=== PATIENT | female | born 1990 | race Caucasian/White ===

== ENCOUNTER 2023-09-17 13:44 | Outpatient (CLI) | payer BC, SELFPAY ==
--- NOTE | 2023-09-17 14:00 | US_ITS ---
Patient: MEDARDO AMOR Facility:?[facility] Patient ID:?[id number] Site Patient ID:?[id number]. Site :?[id number] Study:?US-OB Pelvis anatomy-09/17/2023 2:56:06 PM Ordering Physician:?Aurora Sosa Final Report: HISTORY: anatomic survey. COMPARISON: None available of this gestation. TECHNIQUE: Ultrasound examination of the is performed with transabdominal technique. FINDINGS: A single intrauterine gestation is seen in breech presentation with regular cardiac activity at 144 beats per minute. The placenta is posterior and is free of the cervical os. The placental grade is 0 and the amniotic fluid volume is normal. Single deepest vertical pocket: Normal at 3.9 cm. Non dilated cervix has normal length at 4.3 cm. BPD: 4.4 cm 19 weeks 3 days HC: 17.4 cm 19 weeks 6 days AC: 16.1 cm 21 weeks 1 day FL: 3.4 cm 20 weeks 5 days The estimated age by ultrasound is 20 weeks 4 days, with an estimated date of delivery of 01/31/2024. This correlates well with the clinical age of 20 weeks 2 days. The ultrasound ratios are normal. The estimated weight of 380 grams is at the 73rd percentile based on the clinical dates. The anatomic survey demonstrates normal appearing intracranial structures with a normal septum pellucidum and normal cerebellum. The lateral ventricle is normal in diameter at 7 mm. The upper lip, diaphragm, stomach, cord insertion site, 3-vessel cord, kidneys, bladder and spine are normal in appearance. The lower extremities, the feet, and the cardiac structures are not well seen because of position. IMPRESSION: 1. Single intrauterine gestation in breech presentation with regular cardiac activity. 2. Estimated gestational age is 20 weeks 4 days. 3. The estimated weight of 380 grams is at the 73rd percentile based on the clinical dates. 4. The lower extremities, the feet, and the cardiac structures are not well seen because of position. Dictated by Kalia Pennington MD @ 09/18/2023 10:04:28 AM Signed by:?Kalia Pennington MD @09/18/2023 10:04:28 AM (Electronic Signature)
== END 2023-09-17 13:45 | disposition home or self-care (01) ==
LOC: US 13:45
PROVIDERS: Visit Provider Registered Nurse
DX: Z34.92 Encounter for supervision of normal pregnancy, unspecified, second trimester (principal); O35.HXX0 Maternal care for other (suspected) fetal abnormality and damage, fetal lower extremities anomalies, not applicable or unspecified; O35.BXX0 Maternal care for other (suspected) fetal abnormality and damage, fetal cardiac anomalies, not applicable or unspecified; Z3A.20 20 weeks gestation of pregnancy
CPT/HCPCS: 76805

== ENCOUNTER 2023-10-15 12:53 | Outpatient (CLI) | payer BC, SELFPAY ==
--- NOTE | 2023-10-15 13:00 | CRLHL7_ITS ---
For Patients: As a result of the Century Cures Act, medical imaging exams and procedure reports are released immediately into your electronic medical record. You may view this report before your referring provider. If you have questions, please contact your health care provider. INDICATION: : Missing views of lower extremities/feet and heart lung radford survey TECHNIQUE: Limited transabdominal two-dimensional jalloh-scale ultrasound examination. COMPARISON: 09/17/2023 FINDINGS: There is a living fetus in breech lie with gestational age of 24 weeks 2 days by LMP and EDC of 02/02/2024. The heart rate is measured at 139 beats per minute and the rhythm appears regular. The amniotic fluid volume is within normal limits with single deepest pocket of 3.8 cm. The placenta is posterior and superior to the cervical os. There is no evidence of previa. Lower extremities and feet appear to be within normal limits. Four-chamber heart view within normal limits also. The cervical length is measured at 4.8 cm. IMPRESSION: 1. Living fetus in breech lie with gestational age of 24 weeks 2 days by LMP and EDC of 02/02/2024. 2. Lower extremities, feet and four-chamber heart view within normal limits. Dictated by Shan Castaneda MD @ 10/17/2023 7:44:45 AM (Electronically Signed)
== END 2023-10-15 12:54 | disposition home or self-care (01) ==
LOC: US 12:53
PROVIDERS: Visit Provider Advanced Practice Midwife
DX: O36.8320 Maternal care for abnormalities of the fetal heart rate or rhythm, second trimester, not applicable or unspecified (principal); O35.HXX0 Maternal care for other (suspected) fetal abnormality and damage, fetal lower extremities anomalies, not applicable or unspecified; Z3A.24 24 weeks gestation of pregnancy
CPT/HCPCS: 76816

== ENCOUNTER 2023-11-12 14:10 | Outpatient (CLI) | payer BC, SELFPAY | END 2023-11-12 14:11 | disposition home or self-care (01) | LOC: NFLDREF 11-15 02:45 | PROVIDERS: Visit Provider Advanced Practice Midwife | DX: Z34.93 Encounter for supervision of normal pregnancy, unspecified, third trimester (principal); Z3A.28 28 weeks gestation of pregnancy | CPT/HCPCS: 86592 ==

== ENCOUNTER 2023-11-18 08:33 | Outpatient (CLI) | payer BC, SELFPAY | END 2023-11-18 08:34 | disposition home or self-care (01) | LOC: NFLDREF 11-20 15:43 | PROVIDERS: Visit Provider Advanced Practice Midwife | DX: O99.810 Abnormal glucose complicating pregnancy (principal); Z3A.28 28 weeks gestation of pregnancy | CPT/HCPCS: 82951; 82952 ==

== ENCOUNTER 2023-12-11 13:00 | Outpatient (CLI) | payer BC, SELFPAY ==
--- NOTE | 2023-12-11 13:00 | CRLHL7_ITS ---
For Patients: As a result of the Century Cures Act, medical imaging exams and procedure reports are released immediately into your electronic medical record. You may view this report before your referring provider. If you have questions, please contact your health care provider. INDICATION: Gestational diabetes COMPARISON: 10/15/2023 TECHNIQUE: Real time jalloh scale imaging of the fetus was performed as well as color Doppler and spectral Doppler analysis of the umbilical artery. FINDINGS: Sonographic imaging demonstrates a single living intrauterine gestation. Fetus demonstrates a regular cardiac rate of 157 beats per minute. Fetus has a vertex position. The placenta lies posteriorly. Amniotic fluid volume appears normal and there is a single deepest vertical pocket: 5.7 cm. The estimated weight is 2292gm which lies at the 83rd %. On the prior OB ultrasound exam dated 09/17/2023 the estimated weight was at the 73rd%. BPD 81st percentile. HC 90th percentile. AC 86th percentile. FL is 60th percentile. The HC/AC ratio measures 1.06 range (0.94-1.11). IMPRESSION: Sonographic gestational age 34 weeks 1 day and sonographic due date of 01/21/2024. Sonographic age 12 days ahead of the clinical age. Estimated weight 83rd percentile. Abdominal circumference 86th percentile. Dictated by Karel Liriano MD @ 12/11/2023 3:11:44 PM (Electronically Signed)
== END 2023-12-11 13:01 | disposition home or self-care (01) ==
LOC: US 13:00
PROVIDERS: Visit Provider Advanced Practice Midwife
DX: O24.419 Gestational diabetes mellitus in pregnancy, unspecified control (principal); Z3A.34 34 weeks gestation of pregnancy
CPT/HCPCS: 76816

== ENCOUNTER 2024-01-05 10:35 | Outpatient (CLI) | payer BC, SELFPAY | END 2024-01-05 10:36 | disposition home or self-care (01) | LOC: NFLDREF 01-06 18:39 | PROVIDERS: Visit Provider Advanced Practice Midwife | DX: Z34.93 Encounter for supervision of normal pregnancy, unspecified, third trimester (principal); O24.410 Gestational diabetes mellitus in pregnancy, diet controlled; Z3A.36 36 weeks gestation of pregnancy | CPT/HCPCS: 76816; 87081; 87653 ==

== ENCOUNTER 2024-02-07 16:58 | Inpatient (IN) | payer BC, SELFPAY ==
[2024-02-07 17:16] VITALS: BMI 32.8
--- NOTE | 2024-02-07 17:22 | W.PM.LDBA ---
Subjective History of Present Illness Narrative: Patient is being admitted to Labor and Delivery for IOL at post term with GDMA1. She is a 34 year old at 40 5/7 weeks gestation. Her full history and physical was dictated on 01/11/2024 by Daren BOJORQUEZ. Please see this for details. Baby has been moving well. She has no LOF and few, but increasing contractions the last few days. Diaz score is 5 per clinic exam. she has had some minimal brown spotting since the VE. 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 -GDM Failed 1 hr GTT, scheduling 3 hr GTT in next two weeks: Failed 2/4 values Nutrition consult: Completed 11/19 Growth US at 32 weeks: EFW 83% Growth US at 36 weeks: EFW 92% Consider IOL 39 0/7- 40 6/7 weeks gestation -GBS positive- not wanting to treat GBS, may change her mind based on circumstances of labor. -Rubella non-immune. Rec. PP vaccine. -H/o anxiety and depression in 20s. Currently stable w/o medication or therapy. -Anemia at 28 wks Hgb 10.0 recommended oral iron. At 34 weeks reported not taking iron consistently 2x/week Hgb at 34 weeks:11.2, continue oral iron encouraged MWF intake Covid: Recommended, declines Labs on 06/30/23: A positive, Suzanne screen negative, hgb 11.8, platelets 196, Rubella negative/non-immune, TPPA non reactive, HBsAg non reactive, HIV non reactive, GC/chlam neg/neg, UC no growth, Pap NIL, neg HPV, Hep C non reactive, varicella positive/immune US: 06/29/23: single live IUP at 9w2d w/ EDC 01/30/24, FHR 185bpm Spinal muscular atrophy carrier testing: Negative Cystic fibrosis gene carrier: Negative NIPT testing: Low risk OB - Problem Based A/P Additional Plan (1) : Status: Acute (2) Gestational diabetes: Status: Acute (3) Rubella non-immune status, antepartum: Status: Acute (4) History of depression: Status: Acute (5) History of anxiety: Status: Acute Plan ASSESSMENT:?? 34 at 40 5/7 weeks gestation?? complicated by:??GDMA1, Anemia Labor type: Induced labor?? Category 1 FHR pattern.??? Labor complicated by: GBS +?? GBS positive? PLAN:?? 1. Routine intrapartum cares as ordered. After review of risks and benefits of misoprostol, cervidil, and mechanical option, Ajay are opting for Cervidil. This was placed.? 2. Monitoring per policy, continuous 3. Planning unmedicated . Desires water . Consent signed. Hep C negative. Candidate for analgesia of choice.??? 4. Patient encouraged to reposition and ambulate to promote physiologic labor and after duration of lying down for one hour after cervidil placement.?? 5. GBS prophylaxis to be initiated for GBS positive status per protocol in active labor or with ROM. 6. Anticipate ? Delivery/Labor/Induction Plan Plan: induction Induction method: Cervidil OB Exam Physical Exam Narrative: Vitals Reviewed Constitutional:? Alert and oriented x3 HEENT:? Normocephalic, atraumatic Neck:? Supple Lungs:? Clear to auscultation bilaterally Heart:? Regular rate and rhythm, no murmur, rub or gallop Abdomen:? Soft, nontender, and gravid. Vertex by Jeremie's, confirmed with cervical exam. EFW 8#, but LOP, so could be larger. Extremities:? No edema or erythema Cervix: 0-1 cm/40%/-3 station/vertex. soft, posterior, per my exam NST: 130 bpm/moderate variability/accelerations present/decelerations, perhaps a couple of decelerations, but not recurrent and could just be variation in baseline, resolved before cervidil placed/contractions irreg and not felt by Cornelia
[2024-02-07] MEDS: DINOPROSTONE 10 MG VAGINAL INSERT VAGINAL (18:11)
[2024-02-07 19:23] VITALS: BP 128/74; PULSE 83; RESP 16; TEMP 36.9
[2024-02-07 23:54] VITALS: BP 144/78; PULSE 77
[2024-02-08] VITALS (29 sets, daily range): BP systolic 97–151; BP diastolic 59–87; PULSE 70–115; RESP 12–20; TEMP 36.6–36.9; O2SAT 96–98
[2024-02-08] MEDS: AMPICILLIN 2 GM in 0.9 % SODIUM CHLORIDE Mini-bag 100 ML IVPB (01:14)
[2024-02-08] MEDS: LIDOCAINE 1 % PF 30 ML INJECTION (06:20)
[2024-02-08] MEDS: lidocaine HCL 2 % JELLY (TOP) STERILE 6 ML TOPICAL (06:20)
[2024-02-08] MEDS: OXYTOCIN 30 unit/500 ML in NS 30 UNIT/500 ML BAG 300 UNIT IVPB (06:36)
--- NOTE | 2024-02-08 06:52 | W.PM.OBVAGDE ---
OB Procedure Vag Delivery Mother Details Mother Details: The patient is a 34 year-old, 1, Para now 1001, admitted on 02/07/24 at 40.5 Days gestation. Additional Details Amniotic Membrane Status: SROM Amniotic Membrane Rupture Date: 02/08/24 Amniotic Membrane Rupture Time: 05:32 Amniotic Membrane Fluid Description: Clear Analgesia/Anesthesia Type: Local Waterbirth: Yes Pitcoin: No Intrapartal Events: Labor Induction Induction Method: Cervidil Labor Onset: 00:35 Complete: 04:30 Pushin:30 Heart: heart tones during second stage were category 1 and checked by intermittent dop tones. Delivery Details Delivery Date: 02/08/24 Delivery Time: 05:32 Route of delivery: Infant Gender: Female Viability: Alive; Heart Rate Present Position at Delivery: OA Delivery Details: Patient was admitted for IOL for post dates and progressed quickly after only utilizing cervidil. SROM noted at with clear fluid. Patient was complete at 0430 and pushing at 0430 intermittently. of a viable female at 0532 in OA in the tub. Vertex delivered OA. No nuchal cord or shoulder. Body immediately and unexpectedly right after the head. Roni was able to get in there and catch her with assistance without incident. passed to mothers abdomen with a vigorous cry. Cord was clamped and cut at about 3 min due to large gush of blood, likely indicating placental separation. APGARS were 8 at one minute and 9 at five minutes respectively. Mouth was bulb suctioned. Intact placenta with a 3 vessel cord marginally inserted delivered spontaneously at 0537. Fundus firm. Vaginal lac with left labial extension identified with moderate bleeding and repaired in typical fashion as quickly as possible to stop quick bleeding. With further oozing from above, further inspection revealed a very high apex in the vagina that could not be visualized adequately. Pt declined IV fentanyl pain control for initial repair efforts, so only local lidocaine and topical lidocaine were used. She tolerated bilateral retraction, but the apex was still not able to be visualized. Dr Panda alvarez for assistance. QBL 515 cc after intital assessment before starting to work on the repair. Mother and baby stable; mother has been . Infant weight pending.? 1 Minute Interval Total Score: 8 5 Minute Interval Total Score: 9 Additional Details Shoulder Dystocia: No Placenta Delivery Time: 05:39 Placental Delivery Description: Spontaneous Delivery repair: Vicryl Procedure Done: Global Blood Loss: 515 Laceration: Labial Blood Loss Measurement Type: EBL Bakri Used: No Sponge/Need Count Correct: Yes Cord Vessel Description: 3 Vessels (Marginal insertion) and Clamped/Cut Event Summary Status: Mother and infant were stable after delivery. Continued oozing and poor visualization prompting anesthesia and OR for appropriate care. Disposition: floor
--- NOTE | 2024-02-08 07:30 | P.OBCN_ITS ---
OB - CN: HPI Date of Consult Time Seen by Provider: 07:30 Date Seen: 02/08/24 Patient: [facility] Patient Consult date: 02/08/24 Requesting Physician: Tali Graham CNM Primary Care Provider: Not a Local Provider Consult Narrative Reason for consult: vaginal repair Narrative: The patient is a 34 year old at 40.6 weeks gestation that was admitted to the Center on 02/07/24 for IOL. She had an unmedicated water at 0532. I was asked to assess her laceration due to continued vaginal bleeding. Vaginal exam at bedside: Swollen perineum. Uterus firm and 1 cm below the umbilicus. Minimal bleeding from uterus. Sutures noted midway from the vaginal vault to vaginal introitus. Superior to the repair is a 3-4 cm of laceration that is unrepaired. Laceration is long, extending deep into the posterior fornix. Unable to do adequate assessment at bedside due to pain control. Vagina was packed with a lap for hemostasis. Advised exam under anesthesia as I would need extensive retractions to do adequate repair. Patient is very against this plan due to fear of anesthesia (spinal and epidural). I reiterated to patient that at current state, it would not be technically feasible for me to repair her laceration without better pain control. Additionally, this laceration does require repair as it is not hemostatic. I can give her more local anesthetic but that doesn't take away the discomfort from vaginal retractors. She would like to have a conversation with anesthesia as she has great fear regarding anesthesia care. COLOR DIPPER readily present to bedside to discuss plan of care with patient. 0745 - Per COLOR DIPPER report, patient adamantly declined immediate management as she is unable to make a decision about anesthesia after counseling. She would like finish this cycle prior to further discussion of plan of care. At 0800 she was ready to sign consent for general anesthesia, exam under anesthesia, and vaginal laceration repair. R/B/ and alternatives discussed with patient. All questions answered to patient's satisfaction. Unfortunately, I was informed that all the ORs are currently occupied with and the earliest she can be moved back to the OR is in 45 minutes. VSS QBL before proceeding to the OR: 1074 cc. History History 1 Elective abortions Para 1 Spontaneous abortions Hx # Term Pregnancies Ectopic pregnancies Hx # Pregnancies Multiple births Number of Living Children 0 Labs GBS status: positive OB Labs: Lab Assessment Start: 02/07/24 17:10 Freq: ONCE Status: Complete Protocol: PC.OBGBS Activity Type Activity Date Activity User E-sign Co-sign Detail Recorded Client Recorded Date Recorded By Document 02/07/24 18:19 S Desktop 02/07/24 18:20 AJS 02/07/24 18:19 Lab Assessment GBS Status positive GBS Additional Criteria None Is Patient Allergic to Penicillin? No Treatment Required OK Are Labs Available Yes Maternal Blood Type A Maternal RH Factor Positive Evaluate Maternal Rubella Immune Status Non-Immune Hepatitis B Surface Antigen Negative Maternal HIV Status Negative Maternal Syphillis (RPR) Status Negative PFSH PFSH Medical History (Updated 01/25/24 @ 09:23 by Tali Graham CNM) Depression ?F32.A - Depression, unspecified (ICD-10) Anxiety ?F41.9 - Anxiety disorder, unspecified (ICD-10) Surgical History (Updated 01/11/24 @ 16:15 by Juanita Peña CNM) No history of previous surgery Family History (Updated 01/11/24 @ 15:20 by Juanita Peña CNM) Mother H/O abdominal hysterectomy 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 [place] What is your current living situation?: I presently have a place to live Problems where you live: no known problems In the past 12 months, utilities in danger of being shut off: no In past 12 months, lack of transportation kept you from medical appts, meetings, work, or getting things needed for daily living: no In the past 12 mos, have been you worried that your food would run out before you had money to buy more?: declined to answer In the past 12 mos, the food you bought just didn't last and you didn't have money to buy more?: never true Smoking Status: Never smoker How often does anyone, including family, friends and others, physically hurt you : never How often does anyone, including family, friends and others, insult or talk down to you: never How often does anyone, including family, friends and others, threaten you with harm: never How often does anyone, including family, friends and others, scream or curse at you: never Little interest or pleasure in doing things: several days Feeling down, depressed, or hopeless: not at all Meds Home Medications and Allergies Home Medications ?Medication ?Instructions ?Recorded ?Confirmed ?Type calcium carbonate (Tums) 300 mg PO BID 11/27/23 02/07/24 History ferrous sulfate 325 mg (65 mg 325 mg PO QDAY 12/22/23 02/07/24 History iron) tablet (Feosol) Allergies Allergy/AdvReac Type Severity Reaction Status Date / Time No Known Drug Allergies Allergy Verified 02/04/24 08:21 OB - H&P: Exam Physical Exam: Vital signs: Temp Pulse Resp BP 98.0 F 107 H 20 125/70 02/08/24 03:15 02/08/24 07:23 02/08/24 03:15 02/08/24 07:23 OB - CN: A/P Assessment and Plan (1) : Status: Acute (2) Gestational diabetes: Status: Acute (3) Rubella non-immune status, antepartum: Status: Acute (4) History of depression: Status: Acute (5) History of anxiety: Status: Acute
[2024-02-08] MEDS: LACTATED RINGERS 1000 ML 1,000 ML 125 ML IV (09:12)
[2024-02-08] MEDS: ESTROGENS, CONJUGATED VAGINAL 0.625 MG/G CREAM 1 APPLIC VAGINAL (09:23)
[2024-02-08] MEDS: CEFAZOLIN 2 GM INJ IVP (09:28)
--- NOTE | 2024-02-08 10:02 | W.ANESCHARGE ---
Anesthesia Charges Start Date/Time Anesthesia Start Date: 02/08/24 Anesthesia Start Time: 08:38 Stop Date/Time Anesthesia Stop Date: 02/08/24 Anesthesia Stop Time: 09:58 Summary Emergency: DEAN OF EDUCATION
--- NOTE | 2024-02-08 10:31 | W.PM.GYNPROC ---
Procedure Note Time Seen by Provider: 09:00 Date of procedure: 02/08/24 Will [facility] bill your pro fee for this procedure?: Yes Pre-op diagnosis: 1. Complex vaginal laceration after spontaneous vaginal delivery 2. hemorrhage secondary to vaginal lacerations Post-op diagnosis: 1. Complex vaginal laceration after spontaneous vaginal delivery 2. hemorrhage secondary to vaginal lacerations Procedure: 1. Exam under anesthesia 2. Vaginal laceration repairs Anesthesia: GETA Complications: None Surgeon: Darcie Mosqueda MD IV fluids (mL): 1,000 Urine Output (mL): 700 Pathology: none sent Condition: stable Disposition: floor Findings: Exam under anesthesia: Significantly swollen perineum and bilateral labials. Previous sutures removed. Vaginal lacerations include: bilateral sulcal tears with the right extending deeper into the vaginal canal, perineal body avulsed off the of the perineal skin, bilateral labials with the right labial tear already previously repaired. Half of the clitoris was avulsed. Cervix was intact. Bimanual exam reveals firm uterus, 2 cm below umbilicus. No palpable adnexal masses or tenderness. Procedure Description: QUANTITATIVE BLOOD LOSS: 240 cc PREOP ANTIBIOTIC: 2g of ancef SPECIMEN: None DESCRIPTION OF PROCEDURE: The patient was taken to the operating room where general anesthesia was administered. Lap removed from vagina and previous perineal sutures were cut and removed. She was prepared and draped in normal sterile fashion in the dorsal lithotomy position in yellow fin stirrups, taking care to avoid lower extremity hyperextension, hyperflexion or compression. A surgical time-out was performed with the entire operative staff per protocol. Perioperative antibiotics were given and pneumoboots were placed and activated. EUA revealed the above findings. Bladder was drained with a straight cath. The Hegenberger retractor was placed vaginally for visualization. Bilateral sulcal laceration was repaired with 2-0 vicryl in a continuous locking manner. Three deep figure of 8s were placed to reapproximate the perineal body. Running continuous stitch placed to close the rest of the defect. Clitoris was reattached to it's base on the left side with 3-0 vicryl on an SH needle with a figure of 8. 3-0 continuous nonlocking stitch placed to reapproximate the left labial laceration. Vaginal packing with with premarin placed for continous pressure. To be removed after 24 hours. All instruments were removed. Debrief performed per protocol and specimen reviewed. Specimen was sent to pathology. The patient tolerated the procedure well. Sponge, lap and needle counts were correct x 2. The patient was taken to the recovery room in stable condition. Debrief preformed per protocol. Total QBL: 1214 cc (1074cc prior to OR, and 240 cc intraop)
[2024-02-08] MEDS: IBUPROFEN 600 MG TABLET PO (16:54)
[2024-02-08] MEDS: DOCUSATE SODIUM 100 MG CAPSULE PO (17:36)
[2024-02-09 01:02] VITALS: BP 108/66; PULSE 86; RESP 18; TEMP 36.4; O2SAT 96
[2024-02-09] MEDS: IBUPROFEN 600 MG TABLET PO ×2 (01:20→10:53)
[2024-02-09 05:29] VITALS: BP 95/55; PULSE 85; RESP 16; TEMP 36.9; O2SAT 96
[2024-02-09 06:31] LABS: Hemoglobin* 8.2 gm/dL (12.0-16.0)
[2024-02-09 07:23] LABS: Glucose* 86 mg/dL (60-115)
[2024-02-09 09:24] VITALS: BP 99/58; PULSE 82; RESP 16; TEMP 36.7; O2SAT 97
[2024-02-09] MEDS: DOCUSATE SODIUM 100 MG CAPSULE PO (09:33)
[2024-02-09 10:50] VITALS: BP 111/70; PULSE 82
--- NOTE | 2024-02-09 10:56 | P.DS_ITS ---
DS: Providers Provider Date Seen: 02/09/24 Date of admission: 02/07/24 16:58 Primary care physician: Not a Local Provider Admitting Clinician: Juanita Peña CNM Attending Physician on discharge: Tali Graham CNM Date of Discharge: 02/09/24 DS: Diagnosis Discharge Diagnosis (1) Gestational diabetes: Status: Acute (2) care and examination of lactating mother: Status: Acute (3) History of depression: Status: Acute (4) History of anxiety: Status: Acute (5) Rubella non-immune status, antepartum: Status: Acute (6) High vaginal laceration during delivery: Status: Acute Exam Narrative: Exam Narrative: GENERAL APPEARANCE:? normal affect, alert, no distress MOOD:? appropriate CHEST:? clear to auscultation HEART:? regular rate and rhythm ABDOMEN:? soft, non-tender the uterine fundus is 1 cm below Umbilicus, Midline and is appropriate for the stage of recovery. PERINEUM:? moderate edema of the perineum, vast majority of lacerations are internal but right labial is visible, approximated and without erythema. Vaginal packing removed easily with moderate sero sanguineous dark red lochia EXTREMITIES:? normal and minimal edema Const: Vital Signs, click to edit/add: Vital Signs - 24 hr 02/08/24 11:08 02/08/24 11:17 02/08/24 11:25 Temperature Pulse Rate 71 74 84 Pulse Rate [Pulse Oximeter] Respiratory Rate 12 12 12 Blood Pressure 151/79 H 131/77 128/63 Blood Pressure [Le ft Arm] Pulse Oximetry 97 98 96 Oxygen Delivery Me thod Room Air Room Air 02/08/24 11:39 02/08/24 11:48 02/08/24 12:08 Temperature 98.4 F Pulse Rate 82 78 Pulse Rate [Pulse Oximeter] 72 Respiratory Rate 12 12 12 Blood Pressure 130/73 145/74 H Blood Pressure [Le ft Arm] 130/73 Pulse Oximetry 98 97 96 Oxygen Delivery Me thod Room Air Room Air Room Air 02/08/24 13:22 02/08/24 16:30 02/08/24 21:17 Temperature 97.8 F Pulse Rate 82 Pulse Rate [Pulse Oximeter] 81 85 Respiratory Rate 12 18 18 Blood Pressure 128/87 Blood Pressure [Le ft Arm] 113/71 97/62 Pulse Oximetry 96 97 96 Oxygen Delivery Me thod Room Air Room Air Room Air 02/09/24 01:02 02/09/24 05:29 02/09/24 09:24 Temperature 97.6 F 98.4 F 98.0 F Pulse Rate Pulse Rate [Pulse Oximeter] 86 85 82 Respiratory Rate 18 16 16 Blood Pressure Blood Pressure [Le ft Arm] 108/66 95/55 L 99/58 L Pulse Oximetry 96 96 97 Oxygen Delivery Me thod Room Air Room Air 02/09/24 10:50 Temperature Pulse Rate Pulse Rate [Pulse Oximeter] 82 Respiratory Rate Blood Pressure Blood Pressure [Le ft Arm] 111/70 Pulse Oximetry Oxygen Delivery Me thod OB - DS: Summary Hospital Course Hospital Course: Kelly is a 34 y.o. G 1 P 1001 who was admitted to [facility] for postdates with GDM.? She had a NVD that was uncomplicated, but a complicated high vaginal laceration required repair in the OR under genderal anesthesia with Dr Mosqueda. The patient feels well. Pressure is relieved after removal of vaginal packing at 1030am this morning. The pain is well controlled with current medications.? She has no new complaints.? She is breast feeding and reports things are going well. She is using nipple dover for nipple tenderness. the patient has done well.? Vitals have been stable.? She has remained afebrile.? Has a good appetite, is tolerating a general diet.? She is voiding without difficulty.? She is passing gas and has had a bowel movement.? She is ambulating and denies any dizziness.? Has small amount of rubra lochia. She is planning condoms for prevention.? ?? Problems: None post repair in OR of laceration? ?? plan:? Discharge home with baby.? Follow up in 2 weeks and 6 weeks.? , may see if needed? Hgb 8.2. Iron supplement ordered orally every other day? Labs WNL or stable with trending? Call for signs/symptoms of preeclampsia? For pain control of perineum, breast and pelvic pain, take 600 mg Ibuprofen every 6 hours as needed by mouth or 1000 mg acetaminophen (Tylenol) every 6 hours by mouth as needed. You can alternate these so you are taking something every 3 hours as needed. A heating pad can also be used for your abdomen or breasts.?Docusate Sodium 100 mg by mouth twice daily as needed for a stool softener. Peripartum Data Procedures: Procedures Operation Date: 02/08/24 08:55 Actual Procedure Side Surgeon p EXAM UNDER ANESTHESIA, Vaginal Laceration Repair Not Applicable Darciebelinda Mosqueda MD Gender: Female Infant Discharge Plan: Home Status at Discharge Overall status at discharge: patient is progressing back to baseline Time Spent with Patient Time attestation: Total time spent providing and/or coordinating discharge services: Time spent: Less than 30 minutes Discharge Plan Discharge Disposition: Home, Self-Care Date of Admission: 02/07/24 16:58 Attending Provider on Discharge: Tali Graham Primary Care Provider: Provider,Not a Local Condition: Stable Anticipated Discharge Date/Time: 02/09/24 12:53 Discharge Medications: Continued ferrous sulfate [Feosol] 325 mg (65 mg iron) tablet 325 mg PO QDAY Discontinued Tums 300 mg (750 mg) tablet,chewable 300 mg PO BID (DME) Test Strips Misc See Rx Instructions .MEDSUPPLY Qty: 100 3RF Rx Instructions: Test blood sugar 4 times daily. (DME) lancets Misc See Rx Instructions .MEDSUPPLY Qty: 100 3RF Rx Instructions: Test blood sugar 4 times daily. (DME) Blood Glucose Meter Misc See Rx Instructions .MEDSUPPLY Qty: 1 0RF Rx Instructions: As directed Discharge Orders: Discharge Order (Routine); Ordered 02/09/24 Ordered By: Tali Graham Patient Education: OB Mcdonald Care, OB Vaginal/Breast Feeding Additional Instructions: Discharge instructions were reviewed with the patient including signs and symptoms of infection and home going medications Nothing vaginally for 6 weeks: no tampons or intercourse Do not drive while taking narcotic pain medication(s) Off Work or School for 6 weeks Symptoms to report to doctor: * Bleeding that saturates more than one pad per hour * Passing clots larger than the size of a golf ball * Pain not relieved by prescribed medication * Fever above 100.4 degrees Fahrenheit * A foul vaginal odor * Difficulty in emotions, mood, and functions * Thoughts of hurting yourself and/or * Painful, reddened area in your breast * Any drainage, redness, or tenderness in your IV/epidural site * Severe headache that doesn't improve after taking medications * Changes in vision, including temporary loss of vision, blurred vision, and/or light sensitivity * Upper abdominal pain (usually under ribs on the right side) * Decrease in urination or painful, frequent urinating * Chest pain * Shortness of breath * Tenderness or pain with redness and/swelling in the calf(s) of your leg 2-week visit: discuss infant feeding concerns, review control options and screen for anxiety/depression. 6-week visit for an annual exam. consultation services are available to all mothers and babies for the first year after delivery.? To make an appointment, please call [phone]. For pain control of perineum, breast and pelvic pain, take 600 mg Ibuprofen every 6 hours as needed by mouth or 1000 mg acetaminophen (Tylenol) every 6 hours by mouth as needed. You can alternate these so you are taking something every 3 hours as needed. A heating pad can also be used for your abdomen or breasts.?Docusate Sodium 100 mg by mouth twice daily as needed for a stool softener. Activity Level: No Restrictions Discharge Diet: Regular Follow Up Appointments: [facility] [Provider Group] Forms: [facility] Info Instructions
== END 2024-02-09 14:15 | disposition home or self-care (01) | DRG 560 ==
PROVIDERS: Obstetrics & Gynecology; Admitting Provider Advanced Practice Midwife; Visit Provider Midwife
PROC: 0UQG0ZZ Repair Vagina, Open Approach (ICD-10-PCS; principal; 2024-02-08 08:45)
DX: O48.0 Post-term pregnancy (principal); O24.420 Gestational diabetes mellitus in childbirth, diet controlled; O72.1 Other immediate postpartum hemorrhage; O71.4 Obstetric high vaginal laceration alone; O99.824 Streptococcus B carrier state complicating childbirth; Z78.9 Other specified health status; O99.02 Anemia complicating childbirth; D50.9 Iron deficiency anemia, unspecified; Z3A.40 40 weeks gestation of pregnancy; Z37.0 Single live birth
CPT/HCPCS: 00940; 36415; 59200; 82947; 82962; 85018; 86592; 88307; 99140; A9270; J0290; J0330; J0690; J1100; J1885; J2001; J2405; J2704; J3010; J7120

== ENCOUNTER 2024-03-28 08:11 | Outpatient (CLI) | payer BC, SELFPAY | END 2024-03-28 08:12 | disposition home or self-care (01) | LOC: NFLDREF 03-30 19:51 | PROVIDERS: Visit Provider Midwife | DX: Z86.32 Personal history of gestational diabetes (principal) | CPT/HCPCS: 82947; 82950 ==

== ENCOUNTER 2025-04-12 13:46 | Outpatient (CLI) | payer BC, SELFPAY ==
--- NOTE | 2025-04-12 14:00 | CRLHL7_ITS ---
For Patients: As a result of the Century Cures Act, medical imaging exams and procedure reports are released immediately into your electronic medical record. You may view this report before your referring provider. If you have questions, please contact your health care provider. US OB PELVIS TV INDICATION: Dating. Viability. LMP: 02/11/2025 (per patient and different in chart). YUNIOR by LMP: 11/18/2025. GA: 8 weeks 4 days. PREVIOUS US: No. CRL: 2.1 cm, 8 weeks 5 days, YUNIOR: . FHR: 171 bpm. Gestational Sac: Appears within normal limits. Yolk Sac: Appearing with normal limits. Right Ovary: Not visualized. Left Ovary: 4.1 x 2.2 x 2.2 cm, within normal limits, CL. IMPRESSION: 1) Single living intrauterine measures 8 weeks 5 days with a sonographic due date 11/17/2025. 2) Corpus luteal cyst left ovary. Karel Liriano M.D. Diagnostic Radiologist [email or web address] STACY/jaspal DW/Dictated by: Karel Liriano MD @ 04/13/2025 6:08:00 PM (Electronically Signed)
== END 2025-04-12 13:47 | disposition home or self-care (01) ==
LOC: US 13:47
PROVIDERS: Visit Provider Advanced Practice Midwife
DX: O34.81 Maternal care for other abnormalities of pelvic organs, first trimester (principal); N83.12 Corpus luteum cyst of left ovary; Z3A.08 8 weeks gestation of pregnancy
CPT/HCPCS: 76817; 83021; 86703; 86706; 86803; 86850; 86900; 86901; 87086; 87340; 87491; 87591

== ENCOUNTER 2025-04-12 15:29 | Outpatient (CLI) | payer BC, SELFPAY ==
[2025-04-12 18:41] LABS: Chlamydia DNA Amplified* NOT DETECTED (No Detected); GC DNA Amplified* NOT DETECTED (No Detected)
== END 2025-04-12 15:30 | disposition home or self-care (01) ==
PROVIDERS: Visit Provider Registered Nurse
DX: Z34.91 Encounter for supervision of normal pregnancy, unspecified, first trimester (principal)
CPT/HCPCS: 83020; 83021; 85660; 86592; 86703; 86704; 86706; 86762; 86787; 86803; 86850; 86900; 86901; 87086; 87340; 87491; 87591